=== PATIENT | male | born 1965 | race Caucasian/White ===

== ENCOUNTER 2021-08-20 11:57 | Inpatient (IN) | payer MEDICAID, OTHER ==
[~2021-08-20] VITALS: Ht 157.5 cm; Wt 95.7 kg
[2021-08-20 12:47] LABS: BASOPHILS % 0.9 % (0.0-2.0); EOSINOPHILS % 12.5 % (0.0-5.0); HEMOGLOBIN. 13.1 g/dL (14.0-18.0); LYMPHOCYTES % 28.2 % (20.0-50.0); MEAN CORPUSCULAR HEMOGLOBIN 29.2 pg (28.0-32.0); MEAN CORPUSCULAR VOLUME 86.5 fL (80.0-94.0); MONOCYTES % 6.3 % (2.0-8.0); NEUTROPHILS % 52.1 % (40.0-76.0); PLATELET 244 x1000/uL (130-400); RED BLOOD CELL COUNT 4.51 mill/uL (4.7-6.1); RED CELL DISTRIBUTION WIDTH 13.5 % (11.6-14.6)
[2021-08-20 12:52] LABS: CHLORIDE 103 mEq/L (98-107)
[2021-08-20 13:02] LABS: ETHANOL BLOOD < 10 mg/dL
[2021-08-20] MEDS ORDERED: IOHEXOL-350 100 ML BOTTLE ONE (14:52)
[2021-08-20] MEDS ORDERED: HYDRALAZINE 20MG/ML VIAL IV ONE (15:45)
[2021-08-20 15:56] LABS: CLARITY URINE CLEAR (CLEAR); COLOR URINE YELLOW (YELLOW); KETONES URINE NEGATIVE (NEGATIVE); LEUKOCYTE ESTERASE URINE NEGATIVE (NEGATIVE); NITRITE URINE NEGATIVE (NEGATIVE); OCCULT BLOOD URINE NEGATIVE (NEGATIVE); PH URINE 6.5 (4.5-8.0); PROTEIN URINE NEGATIVE (NEGATIVE); SPECIFIC GRAVITY URINE 1.033 (1.005-1.030); UROBILINOGEN URINE 0.2 E.U./dL (0.2-1.0)
[2021-08-20 16:13] LABS: *AMPHETAMINES SCREEN URINE NEGATIVE (NEGATIVE); *BARBITURATES SCREEN URINE NEGATIVE (NEGATIVE); *BENZODIAZEPINES SCREEN URINE NEGATIVE (NEGATIVE); *COCAINE SCREEN URINE NEGATIVE (NEGATIVE); CANNABINOID URINE SCREEN NEGATIVE (NEGATIVE); METHADONE URINE SCREEN NEGATIVE (NEGATIVE); OPIATES URINE SCREEN NEGATIVE (NEGATIVE); PHENCYCLIDINE URINE SCREEN NEGATIVE (NEGATIVE)
[2021-08-20] MEDS ORDERED: DEXTROSE 50% WATER 50ML SYRINGE IV PRN (16:45)
[2021-08-20] MEDS ORDERED: IPRATROPIUM/ALBUTEROL 0.5-3(2.5)MG/3ML NEB NEB PRN (16:45)
[2021-08-20] MEDS ORDERED: ONDANSETRON HCL 4MG/2ML INJ IV PRN (16:45)
[2021-08-20] MEDS ORDERED: MAGNESIUM/ALUMINUM HYDROXIDE/SIMETHICONE 30ML UDC PO PRN (16:45)
[2021-08-20] MEDS ORDERED: ACETAMINOPHEN 325MG TABLET PO PRN ×2 (16:45)
[2021-08-20] MEDS ORDERED: GUAIFENESIN 200MG/10ML SUGAR FREE UDC PO PRN (16:45)
[2021-08-20] MEDS: BLOOD SUGAR DIAGNOSTIC STRIP TEST SCH ×3 (17:10→21:44)
[2021-08-20] MEDS: INSULIN LISPRO 100 UNITS/ML SUBCUT SCH ×2 (17:32→21:44)
[2021-08-20] MEDS: CLONIDINE 0.1MG TABLET PO PRN (17:43)
[2021-08-20 18:25] VITALS: BP 170/95
[2021-08-20 20:00] VITALS: BP 99/72
[2021-08-20] MEDS ORDERED: NALOXONE HCL 0.4MG/ML VIAL IV PRN (20:00)
[2021-08-20 21:00] VITALS: BP 110/78
[2021-08-20] MEDS: HYDROCODONE/ACETAMINOPHEN 5/325MG TABLET PO PRN (21:00)
[2021-08-21] VITALS: BP 124/84
[2021-08-21 04:00] VITALS: BP 147/99
[2021-08-21] MEDS: INSULIN LISPRO 100 UNITS/ML SUBCUT SCH ×4 (06:09→20:45)
[2021-08-21] MEDS: BLOOD SUGAR DIAGNOSTIC STRIP TEST SCH ×4 (06:09→20:46)
[2021-08-21 07:34] LABS: BASOPHILS % 0.6 % (0.0-2.0); HEMATOCRIT. 38.5 % (42.0-52.0); HEMOGLOBIN. 13.1 g/dL (14.0-18.0); MEAN CORPUSCULAR HEMOGLOBIN 29.6 pg (28.0-32.0); MEAN CORPUSCULAR VOLUME 86.6 fL (80.0-94.0); MEAN PLATELET VOLUME 9.2 fl (7.4-10.4); NEUTROPHILS % 50.4 % (40.0-76.0); PLATELET 229 x1000/uL (130-400); RED BLOOD CELL COUNT 4.44 mill/uL (4.7-6.1); RED CELL DISTRIBUTION WIDTH 13.5 % (11.6-14.6)
[2021-08-21 07:41] LABS: CHLORIDE 103 mEq/L (98-107)
[2021-08-21 07:57] LABS: PHOSPHORUS 3.8 mg/dL (2.5-4.9); T4 FREE 0.93 ng/dL (0.76-1.46)
[2021-08-21 08:00] VITALS: BP 121/90
[2021-08-21 08:31] LABS: FOLIC ACID (FOLATE) SERUM > 20.00 ng/mL (>5.38); VITAMIN B12 SERUM > 2000.0 pg/mL (211-911)
[2021-08-21] MEDS: ENOXAPARIN 40MG/0.4ML SYR SUBCUT SCH (09:00)
[2021-08-21 12:00] VITALS: BP 142/89
[2021-08-21] MEDS: HYDROCODONE/ACETAMINOPHEN 5/325MG TABLET PO PRN ×2 (13:29→17:39)
[2021-08-21 16:00] VITALS: BP 130/90
[2021-08-21 18:43] LABS: CREATINE KINASE MB FRACTION 2.2 ng/mL (0.5-3.6)
[2021-08-21] MEDS: ASPIRIN 81MG TABLET PO SCH (18:44)
[2021-08-21] MEDS: CLONIDINE 0.1MG TABLET PO PRN (19:42)
[2021-08-21 20:00] VITALS: BP 174/100
[2021-08-21] MEDS: ATORVASTATIN CALCIUM 40MG TABLET PO SCH (20:45)
[2021-08-21] MEDS ORDERED: GABAPENTIN 100MG CAPSULE PO SCH (22:45)
[2021-08-21] MEDS: LOSARTAN POTASSIUM 25 MG TABLET PO SCH (23:21)
[2021-08-22] VITALS: BP 142/86
[2021-08-22 04:00] VITALS: BP 140/85
[2021-08-22] MEDS: INSULIN LISPRO 100 UNITS/ML SUBCUT SCH ×4 (06:12→23:23)
[2021-08-22] MEDS: BLOOD SUGAR DIAGNOSTIC STRIP TEST SCH ×4 (06:12→23:22)
[2021-08-22 07:23] LABS: CREATINE KINASE MB FRACTION 1.8 ng/mL (0.5-3.6)
[2021-08-22 08:00] VITALS: BP 137/89
[2021-08-22] MEDS: ASPIRIN 81MG TABLET PO SCH (08:15)
[2021-08-22] MEDS: ENOXAPARIN 40MG/0.4ML SYR SUBCUT SCH (08:16)
[2021-08-22] MEDS ORDERED: AMLODIPINE 5MG TABLET PO SCH (09:00)
[2021-08-22 12:00] VITALS: BP 127/86
[2021-08-22 15:29] VITALS: BP 167/85
[2021-08-22 20:00] VITALS: BP 147/89
[2021-08-22] MEDS ORDERED: HYDR25TA PO (20:48)
[2021-08-22] MEDS ORDERED: LOSA50TA41 PO (20:48)
[2021-08-22] MEDS: GABAPENTIN 300MG CAPSULE PO SCH (21:21)
[2021-08-22] MEDS: LOSARTAN POTASSIUM 25 MG TABLET PO SCH (21:21)
[2021-08-22] MEDS: ATORVASTATIN CALCIUM 40MG TABLET PO SCH (21:22)
[2021-08-22] MEDS ORDERED: DEXTROSE 50% WATER 50ML SYRINGE IV PRN (23:30)
[2021-08-23] VITALS: BP 140/86
[2021-08-23 04:00] VITALS: BP 165/85
[2021-08-23] MEDS: BLOOD SUGAR DIAGNOSTIC STRIP TEST SCH ×4 (06:20→20:40)
[2021-08-23] MEDS: INSULIN LISPRO 100 UNITS/ML SUBCUT SCH ×4 (06:20→20:40)
[2021-08-23 06:25] LABS: BASOPHILS % 0.6 % (0.0-2.0); EOSINOPHILS % 10.5 % (0.0-5.0); HEMATOCRIT. 39.7 % (42.0-52.0); HEMOGLOBIN. 13.5 g/dL (14.0-18.0); LYMPHOCYTES % 20.8 % (20.0-50.0); MEAN CORPUSCULAR HEMOGLOBIN 29.7 pg (28.0-32.0); MEAN CORPUSCULAR VOLUME 87.2 fL (80.0-94.0); MEAN PLATELET VOLUME 9.3 fl (7.4-10.4); MONOCYTES % 8.2 % (2.0-8.0); NEUTROPHILS % 59.9 % (40.0-76.0); PLATELET 220 x1000/uL (130-400); RED BLOOD CELL COUNT 4.55 mill/uL (4.7-6.1); RED CELL DISTRIBUTION WIDTH 13.4 % (11.6-14.6)
[2021-08-23 07:22] LABS: CHLORIDE 108 mEq/L (98-107)
[2021-08-23 07:29] LABS: PHOSPHORUS 3.8 mg/dL (2.5-4.9)
[2021-08-23 08:00] VITALS: BP 140/84
[2021-08-23] MEDS: ASPIRIN 81MG TABLET PO SCH (09:33)
[2021-08-23] MEDS: AMLODIPINE 10MG TABLET PO SCH (09:34)
[2021-08-23] MEDS: GABAPENTIN 100MG CAPSULE PO SCH ×2 (09:35→17:49)
[2021-08-23] MEDS: ENOXAPARIN 40MG/0.4ML SYR SUBCUT SCH (09:35)
[2021-08-23 12:00] VITALS: BP 147/90
[2021-08-23 16:00] VITALS: BP 138/92
[2021-08-23] MEDS: HYDROCODONE/ACETAMINOPHEN 5/325MG TABLET PO PRN (16:31)
[2021-08-23 20:00] VITALS: BP 139/81
[2021-08-23] MEDS: LOSARTAN POTASSIUM 25 MG TABLET PO SCH (20:40)
[2021-08-23] MEDS: GABAPENTIN 300MG CAPSULE PO SCH (20:40)
[2021-08-23] MEDS: ATORVASTATIN CALCIUM 40MG TABLET PO SCH (20:40)
[2021-08-24 00:06] VITALS: BP 150/82
[2021-08-24 04:00] VITALS: BP 130/92
[2021-08-24] MEDS: BLOOD SUGAR DIAGNOSTIC STRIP TEST SCH ×4 (06:32→21:13)
[2021-08-24] MEDS: INSULIN LISPRO 100 UNITS/ML SUBCUT SCH ×4 (06:32→21:13)
[2021-08-24] MEDS: AMLODIPINE 10MG TABLET PO SCH (07:45)
[2021-08-24 08:00] VITALS: BP 101/69
[2021-08-24] MEDS: ASPIRIN 81MG TABLET PO SCH (08:26)
[2021-08-24] MEDS: HYDROCODONE/ACETAMINOPHEN 5/325MG TABLET PO PRN (08:27)
[2021-08-24] MEDS: GABAPENTIN 100MG CAPSULE PO SCH ×2 (08:28→16:45)
[2021-08-24] MEDS: ENOXAPARIN 40MG/0.4ML SYR SUBCUT SCH (08:28)
[2021-08-24 12:00] VITALS: BP 125/82
[2021-08-24 16:00] VITALS: BP 125/87
[2021-08-24 20:00] VITALS: BP 151/87
[2021-08-24] MEDS: ATORVASTATIN CALCIUM 40MG TABLET PO SCH (20:49)
[2021-08-24] MEDS: GABAPENTIN 300MG CAPSULE PO SCH (20:50)
[2021-08-24] MEDS: LOSARTAN POTASSIUM 25 MG TABLET PO SCH (20:50)
[2021-08-25] VITALS: BP 153/87
[2021-08-25 04:00] VITALS: BP 144/91
[2021-08-25] MEDS: BLOOD SUGAR DIAGNOSTIC STRIP TEST SCH ×2 (06:59→11:30)
[2021-08-25] MEDS: INSULIN LISPRO 100 UNITS/ML SUBCUT SCH ×2 (06:59→11:49)
[2021-08-25 08:00] VITALS: BP 145/97
[2021-08-25] MEDS: GABAPENTIN 100MG CAPSULE PO SCH (08:10)
[2021-08-25] MEDS: ASPIRIN 81MG TABLET PO SCH (08:10)
[2021-08-25] MEDS: AMLODIPINE 10MG TABLET PO SCH (08:11)
[2021-08-25] MEDS ORDERED: ENOXAPARIN 30MG/0.3ML SYR SUBCUT SCH (09:00)
[2021-08-25 12:00] VITALS: BP 120/83
[2021-08-25 15:48] VITALS: BP 130/83
[2021-08-25] MEDS ORDERED: GABA-532 PO (15:59)
[2021-08-25] MEDS ORDERED: LIP40 PO (15:59)
[2021-08-25] MEDS ORDERED: AMLO10TA80 PO (15:59)
[2021-08-25] MEDS ORDERED: METF-414 PO (15:59)
[2021-08-25] MEDS ORDERED: ASPI-1160 PO (15:59)
[2021-08-25] MEDS ORDERED: LOSA25TA3 PO (15:59)
[2021-08-25 16:00] VITALS: BP 130/83
[2021-08-25] MEDS ORDERED: GABAPENTIN 300MG CAPSULE PO SCH (17:00)
[2021-08-26] MEDS ORDERED: TAMS-11 PO (15:20)
== END 2021-08-25 17:00 | disposition home or self-care (01) | DRG 111 ==
LOC: ER 12:44 → 8WST 15:45 → EDBEDREQ 15:56 → EDBEDREQSVC 15:56 → ENRESERV 16:13 → SUPCPDRO 16:40
PROVIDERS: ADMIT Internal Medicine; ATTEND Internal Medicine
PROC: 4A00X4Z Measurement of Central Nervous Electrical Activity, External Approach (ICD-10-PCS; principal; 2021-08-25)
DX: R42 Dizziness and giddiness (principal); E11.40 Type 2 diabetes mellitus with diabetic neuropathy, unspecified; G62.9 Polyneuropathy, unspecified; I69.351 Hemiplegia and hemiparesis following cerebral infarction affecting right dominant side; E11.65 Type 2 diabetes mellitus with hyperglycemia; E78.5 Hyperlipidemia, unspecified; I10 Essential (primary) hypertension; Z59.00 Homelessness unspecified; I69.398 Other sequelae of cerebral infarction
CPT/HCPCS: 36415; 70496; 70498; 70551; 71045; 80048; 80053; 80061; 80305; 80320; 81003; 82550; 82553; 82607; 82746; 82962; 83036; 83605; 83735; 83880; 84100; 84439; 84443; 84484; 85025; 85379; 93005; 93306; 93970; 95816; 97116; 97162; 97166; 97530; 97535; 99291; J0360; J1650; J1815; Q9967; G0480